=== PATIENT | female | born 1965 | race Caucasian/White ===

== ENCOUNTER 2019-04-13 12:41 | Emergency (ER) | payer MEDICARE ==
[~2019-04-13 12:41] MED LIST: ALBU0.63 NEB; BUPR100T11 PO; GUAI473L20 PO; HYDR-826 PO; IPRA3AMP30 NPPB; LIDO700A20 TD; LISI-424 PO; MAGN400O7 PO; METO25TA4 PO; OXYC-307 PO; PRED20TA PO; Sulfameth./Trimethoprim Ds PO; TRAM50TA2 PO
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
[2019-04-13] MEDS ORDERED: ALBUTEROL SULFATE 2.5 MG/3 ML NPPB ONE (13:30)
[2019-04-13] MEDS ORDERED: ALBUTEROL SULFATE 2.5 MG/3 ML ONE (13:43)
--- NOTE | 2019-04-13 14:14 | NUR ---
TASK NURSE USED US TO START PIV. 18G LFA
[2019-04-13 14:29] LABS: BASOPHILS # (AUTO) 0.06 x10^3/uL (0-0.1); BASOPHILS % (AUTO) 1 % (0-1); EOSINOPHILS # (AUTO) 0.33 x10^3/uL (0-0.4); EOSINOPHILS % (AUTO) 5 % (1-7); LYMPHOCYTES # (AUTO) 1.48 x10^3/uL (1-3.4); LYMPHOCYTES % (AUTO) 23 % (22-44); MD NO; MEAN CORPUSCULAR HEMOGLOBIN 31.7 pg (27.0-34.8); MEAN CORPUSCULAR HGB CONC 32.6 g/dL (32.4-35.8); MEAN CORPUSCULAR VOLUME 97.1 fL (80-100); MEAN PLATELET VOLUME 6.4 fL (7.4-10.4); MONOCYTES # (AUTO) 0.38 x10^3/uL (0.2-0.8); MONOCYTES % (AUTO) 6 % (2-9); NEUTROPHILS # (AUTO) 4.26 x10^3/uL (1.8-6.8); NEUTROPHILS % (AUTO) 65 % (42-75); PLATELET COUNT 504 x10^3/uL (130-400); RED BLOOD COUNT 3.93 x10^6/uL (3.82-5.3); RED CELL DISTRIBUTION WIDTH 15.8 % (9.6-15.2)
[2019-04-13 14:30] LABS: ALBUMIN 2.8 g/dL (3.4-5.0); ANION GAP 9 mmol/L (5-15); CALCIUM 8.7 mg/dL (8.5-10.1); CHLORIDE 112 mmol/L (98-107); CREATININE 0.88 mg/dL (0.55-1.02)
--- NOTE | 2019-04-13 14:44 | NUR ---
PT AT CT
[2019-04-13] MEDS ORDERED: OMNIPAQUE 350 MG/ML, 100ML BOTTLE ONE (14:53)
[2019-04-13 15:01] VITALS: BP 95/64
--- NOTE | 2019-04-13 15:02 | NUR ---
PT BACK FROM CT. PT CONNECTED TO ALL MONITORING. CHAPITO.
--- NOTE | 2019-04-13 15:14 | NUR ---
ALL RESULTS ARE BACK AT THIS TIME. CHART UP FOR RECHECK.
--- NOTE | 2019-04-13 15:34 | NUR ---
MD AT BEDSIDE TO UPDATE PT ON POC.
== END 2019-04-13 15:44 | disposition home or self-care (01) ==
LOC: ED 13:08
DX: R07.89 Other chest pain (principal); R05 Cough; R06.00 Dyspnea, unspecified; J44.9 Chronic obstructive pulmonary disease, unspecified; Z87.891 Personal history of nicotine dependence
CPT/HCPCS: 36415; 71275; 80048; 82040; 85025; 93005; 94640; 99284; Q9967

== ENCOUNTER 2019-05-14 12:02 | Day surgery (SDC) | payer MEDICARE ==
[~2019-05-14] VITALS: Ht 165.1 cm; Wt 88.6 kg
[~2019-05-14 12:02] MED LIST changes: +AMLO10TA8 PO; +AMOX1TAB12 PO; +ASPI-496 PO; +BUDE10.2 INH; +DEXA1TAB5 PO; +DOXY100T PO; +GUAI200T37 PO; +Guaifenesin/Cod200mg-20MG/10ML PO; +LEVO750T26 PO; +LISI-167 PO; +METO50TA82 PO; +OSEL75CA14 PO; +OXYcodone/APAP 7.5/325MG PO; +TIOT18CA INH
[2019-05-14 12:52] VITALS: BP 119/83
[2019-05-14 13:06] LABS: MICROSCOPIC NOT IND
[2019-05-14] MEDS ORDERED: METOPROLOL PO (13:06)
[2019-05-14 13:10] LABS: CULTURE INDICATED? NO
[2019-05-14] MEDS ORDERED: PROPOFOL 10 MG/ML, 20ML ONE (14:00)
[2019-05-14] MEDS ORDERED: ONDANSETRON 2MG/ML, 2ML ONE (14:00)
[2019-05-14] MEDS ORDERED: ROCURONIUM 10 MG/ML,10ML ONE (14:00)
[2019-05-14] MEDS ORDERED: DEXAMETHASONE 4 MG/ML, 1ML ONE (14:00)
[2019-05-14] MEDS ORDERED: MEPERIDINE/PF 25MG/ML,1ML IVPush PRN (14:30)
[2019-05-14] MEDS ORDERED: ONDANSETRON 2MG/ML, 2ML IV PRN (14:30)
[2019-05-14] MEDS ORDERED: PROMETHAZINE 25 MG/ML, 1ML IV PRN (14:30)
[2019-05-14] MEDS ORDERED: OXYcodone 5 MG/5 ML ORAL.SOL UDC PO PRN (14:30)
[2019-05-14] MEDS ORDERED: DIAZEPAM 5 MG/ML, 2ML IVPush PRN (14:30)
[2019-05-14] MEDS ORDERED: hydrALAzine 20 MG/ML, 1ML IV PRN (14:30)
[2019-05-14] MEDS ORDERED: MIDAZOLAM 1 MG/ML, 2ML IV PRN (14:30)
[2019-05-14] MEDS ORDERED: FENTANYL PF 100 MCG/2ML IV PRN (14:30)
[2019-05-14] MEDS ORDERED: LABETALOL 5MG/ML, 20ML IV PRN (14:30)
[2019-05-14] MEDS ORDERED: HYDROmorphone 1 MG/ML, 1ML INJ IVPush PRN (14:30)
[2019-05-14] MEDS ORDERED: ALBUTEROL/IPRATROPIUM 2.5MG/0.5MG, 3 ML ONE (15:01)
== END 2019-05-14 16:48 | disposition home or self-care (01) ==
LOC: OUT 12:02 → EDSTATUS 13:30 → OUT 16:48
PROVIDERS: ATTEND Internal Medicine
DX: R91.8 Other nonspecific abnormal finding of lung field (principal); R59.1 Generalized enlarged lymph nodes; J44.9 Chronic obstructive pulmonary disease, unspecified; I10 Essential (primary) hypertension; Z79.899 Other long term (current) drug therapy
CPT/HCPCS: 31652; 71045; 81003; 88172; 88173; 88177; 88305; 94640; J1100; J2405; J2704; 31629

== ENCOUNTER → 2019-05-22 | Outpatient (CLI) | payer MEDICARE ==
[~2019-05-22] MED LIST changes: +GADOTERATE 10 MMOL/20 ML SYR ONE; +METOPROLOL PO
== END | disposition home or self-care (01) ==
LOC: RAD 13:07
PROVIDERS: ATTEND Internal Medicine
DX: C77.1 Secondary and unspecified malignant neoplasm of intrathoracic lymph nodes (principal); I67.82 Cerebral ischemia; I63.81 Other cerebral infarction due to occlusion or stenosis of small artery; J34.1 Cyst and mucocele of nose and nasal sinus; J34.89 Other specified disorders of nose and nasal sinuses
CPT/HCPCS: 70553; 78815; A9552; A9575

== ENCOUNTER 2019-05-23 10:04 | Outpatient (CLI) | payer MEDICARE ==
[~2019-05-23 10:04] MED LIST changes: -GADOTERATE 10 MMOL/20 ML SYR ONE
== END 2019-05-23 23:59 | disposition home or self-care (01) ==
LOC: ROC 10:04
PROVIDERS: ATTEND Radiology Radiation Oncology
DX: C77.1 Secondary and unspecified malignant neoplasm of intrathoracic lymph nodes (principal)
CPT/HCPCS: G0463

== ENCOUNTER 2019-05-27 07:58 | Inpatient (IN) | payer MEDICARE ==
[~2019-05-27] VITALS: Ht 165.1 cm; Wt 93.9 kg
--- NOTE | 2019-05-27 08:15 | NUR ---
PT REFUSES WHEELCHAIR.
--- NOTE | 2019-05-27 09:09 | NUR ---
TO ROOM-PLACED ON OUTREACH TEAM MEMBER- 94, 105/74 REPORTS SUBSTERNAL CP SIMILIAR TO PAIN R/T KNOWN CANCEROUS MASS IN CHEST PATIENT UNSURE I SHE WOULD LIKE TO PURSUE RAD/CHEMO OR HOSPICE. REPORTS SHE IS GETTING LITTLE ASSISTANCE IN MAKING CAREY CHOICE FROM PCP/ONCOLOGIST
--- NOTE | 2019-05-27 09:50 | NUR ---
CXR AT BEDSIDE
[2019-05-27] MEDS ORDERED: MORPHINE SULFATE 4 MG/ML, 1ML ONE ×2 (10:12→13:02)
[2019-05-27] MEDS: MORPHINE SULFATE 4 MG/ML, 1ML IVPush PRN ×2 (10:29→13:17)
--- NOTE | 2019-05-27 10:29 | NUR ---
PIV PLACED FROM WHICH LABS WERE DRAWN-MEDICATED PER EMAR FOR 10/19 CHEST PAIN VSS UNCHANGED ON COIN PURSE FRAMER UPDATED ON ESTIMATED POC
[2019-05-27 10:44] LABS: BASOPHILS # (AUTO) 0.02 x10^3/uL (0-0.1); BASOPHILS % (AUTO) 0 % (0-1); EOSINOPHILS # (AUTO) 0.22 x10^3/uL (0-0.4); EOSINOPHILS % (AUTO) 2 % (1-7); LYMPHOCYTES # (AUTO) 1.22 x10^3/uL (1-3.4); LYMPHOCYTES % (AUTO) 12 % (22-44); MD NO; MEAN CORPUSCULAR HEMOGLOBIN 30.5 pg (27.0-34.8); MEAN CORPUSCULAR HGB CONC 32.8 g/dL (32.4-35.8); MEAN CORPUSCULAR VOLUME 92.9 fL (80-100); MEAN PLATELET VOLUME 6.9 fL (7.4-10.4); MONOCYTES # (AUTO) 0.69 x10^3/uL (0.2-0.8); MONOCYTES % (AUTO) 7 % (2-9); NEUTROPHILS # (AUTO) 7.73 x10^3/uL (1.8-6.8); NEUTROPHILS % (AUTO) 78 % (42-75); PLATELET COUNT 351 x10^3/uL (130-400); RED BLOOD COUNT 4.29 x10^6/uL (3.82-5.3); RED CELL DISTRIBUTION WIDTH 15.5 % (9.6-15.2)
[2019-05-27 10:54] LABS: ALBUMIN 3.2 g/dL (3.4-5.0); ANION GAP 5 mmol/L (5-15); CALCIUM 8.2 mg/dL (8.5-10.1); CHLORIDE 106 mmol/L (98-107); CREATININE 0.74 mg/dL (0.55-1.02)
[2019-05-27 10:59] LABS: TROPONIN I < 0.015 ng/mL (0.000-0.045)
[2019-05-27] MEDS ORDERED: HYDROcodone/APAP 5/325 TABLET PO STA (11:12)
[2019-05-27] MEDS ORDERED: HYDROcodone/APAP 5/325 TABLET ONE (11:31)
[2019-05-27] MEDS ORDERED: MORPHINE SULFATE 4 MG/ML, 1ML IVPush PRN (12:00)
--- NOTE | 2019-05-27 12:04 | NUR ---
WITH REASSESSMENT PATIENT REPORTS PAIN IMPROVED TO 4-6/10
[2019-05-27] MEDS ORDERED: ACETAMINOPHEN 325 MG TABLET PO PRN (12:30)
[2019-05-27] MEDS ORDERED: GABAPENTIN 300 MG CAPSULE PO PRN (12:30)
[2019-05-27] MEDS ORDERED: hydrALAzine 20 MG/ML, 1ML IVPush PRN (12:30)
[2019-05-27] MEDS ORDERED: LABETALOL 5MG/ML, 20ML IVPush PRN (12:30)
[2019-05-27] MEDS ORDERED: ONDANSETRON 2MG/ML, 2ML IVPush PRN (12:30)
[2019-05-27] MEDS ORDERED: LIDODERM 5% PATCH TD PRN (12:30)
[2019-05-27] MEDS ORDERED: PROMETHAZINE 25 MG/ML, 1ML IM PRN (12:30)
[2019-05-27] MEDS ORDERED: ASPIRIN 81 MG TABLET CHEW PO ONE (12:30)
[2019-05-27] MEDS ORDERED: ALBUTEROL/IPRATROPIUM 2.5MG/0.5MG, 3 ML ONE (12:38)
--- NOTE | 2019-05-27 12:42 | NUR ---
TO CT SCAN
[2019-05-27] MEDS ORDERED: OMNIPAQUE 350 MG/ML, 100ML BOTTLE ONE (12:49)
[2019-05-27] MEDS ORDERED: NICOTINE 14MG/24 HR PATCH.TD24 ONE (13:01)
[2019-05-27] MEDS: ALBUTEROL/IPRATROPIUM 2.5MG/0.5MG, 3 ML NPPB SCH ×3 (13:02→19:23)
[2019-05-27 13:09] LABS: INTERNATIONAL NORMALIZED RATIO 0.89 (0.93-1.1); PROTHROMBIN TIME 9.4 Seconds (9.6-11.5)
--- NOTE | 2019-05-27 13:10 | NUR ---
Medicated per emar for continued pain at 8/10 Rt at bedside-patient reports nebulizer "Helped a ton. I feel way better." Requested mucinex from pharmacy asa/hep deferred for time being as patient took 5 baby aspirins this AM
[2019-05-27] MEDS: HEPARIN 5,000 UNITS/ML, 1ML SQ SCH ×2 (13:15→20:03)
[2019-05-27] MEDS: NICOTINE 14MG/24 HR PATCH.TD24 TD SCH (13:16)
[2019-05-27] MEDS: SODIUM CHLORIDE 0.9% 1,000 ML IV SCH (13:17)
[2019-05-27 13:37] LABS: CHOL/HDL RATIO 3.4; LDL/HDL RATIO 2.1 (0.5-3.0)
[2019-05-27 14:26] VITALS: BP 93/64
[2019-05-27] MEDS: morphine SULFATE 10 MG/ML, 1ML IVPush PRN ×4 (14:34→21:34)
[2019-05-27] MEDS: GUAIFENESIN 200 MG TABLET PO SCH ×3 (14:34→20:04)
[2019-05-27 15:23] LABS: TROPONIN I < 0.015 ng/mL (0.000-0.045)
[2019-05-27 18:58] VITALS: BP 99/58
[2019-05-27] MEDS: HYDROcodone/APAP 5/325 TABLET PO PRN (20:03)
[2019-05-27] MEDS: ATORVASTATIN 40 MG TABLET PO SCH (20:04)
[2019-05-27 21:49] LABS: TROPONIN I < 0.015 ng/mL (0.000-0.045)
[2019-05-28] MEDS ORDERED: SODIUM CHLORIDE 0.9%, 500ML IVBOLUS ONE
[2019-05-28 00:51] VITALS: BP 109/76
[2019-05-28] MEDS: morphine SULFATE 10 MG/ML, 1ML IVPush PRN ×3 (01:00→11:50)
[2019-05-28] MEDS: ALBUTEROL/IPRATROPIUM 2.5MG/0.5MG, 3 ML NPPB SCH ×2 (01:15→06:35)
[2019-05-28] MEDS: GUAIFENESIN 200 MG TABLET PO SCH ×4 (04:56→22:09)
[2019-05-28] MEDS: HEPARIN 5,000 UNITS/ML, 1ML SQ SCH ×3 (04:57→22:09)
[2019-05-28 06:52] VITALS: BP 104/73
[2019-05-28] MEDS ORDERED: ALBUTEROL SULFATE 2.5 MG/3 ML NPPB PRN (07:00)
[2019-05-28] MEDS ORDERED: SODIUM CHLORIDE 0.9% 1,000ML IVBOLUS ONE (07:30)
[2019-05-28] MEDS ORDERED: PANTOPRAZOLE 40 MG IV IVPush SCH (07:30)
[2019-05-28] MEDS: HYDROcodone/APAP 5/325 TABLET PO PRN ×2 (07:49→22:53)
[2019-05-28 07:57] LABS: ALANINE AMINOTRANSFERASE 16 U/L (12-78); ALBUMIN 2.8 g/dL (3.4-5.0); ANION GAP 10 mmol/L (5-15); CALCIUM 8.2 mg/dL (8.5-10.1); CHLORIDE 107 mmol/L (98-107); CREATININE 0.55 mg/dL (0.55-1.02)
[2019-05-28 07:59] LABS: ALKALINE PHOSPHATASE 70 U/L (45-117); BILIRUBIN,TOTAL 0.7 mg/dL (0.2-1.0); TOTAL PROTEIN 6.5 g/dL (6.4-8.2)
[2019-05-28 08:56] LABS: BASOPHILS # (AUTO) 0.04 x10^3/uL (0-0.1); BASOPHILS % (AUTO) 1 % (0-1); EOSINOPHILS # (AUTO) 0.07 x10^3/uL (0-0.4); EOSINOPHILS % (AUTO) 1 % (1-7); LYMPHOCYTES # (AUTO) 1.18 x10^3/uL (1-3.4); LYMPHOCYTES % (AUTO) 14 % (22-44); MD NO; MEAN CORPUSCULAR HEMOGLOBIN 30.8 pg (27.0-34.8); MEAN CORPUSCULAR HGB CONC 33.2 g/dL (32.4-35.8); MEAN CORPUSCULAR VOLUME 92.6 fL (80-100); MEAN PLATELET VOLUME 6.5 fL (7.4-10.4); MONOCYTES # (AUTO) 0.69 x10^3/uL (0.2-0.8); MONOCYTES % (AUTO) 8 % (2-9); NEUTROPHILS # (AUTO) 6.36 x10^3/uL (1.8-6.8); NEUTROPHILS % (AUTO) 76 % (42-75); PLATELET COUNT 279 x10^3/uL (130-400); RED BLOOD COUNT 3.91 x10^6/uL (3.82-5.3); RED CELL DISTRIBUTION WIDTH 15.6 % (9.6-15.2)
[2019-05-28] MEDS: NICOTINE 14MG/24 HR PATCH.TD24 TD SCH (11:49)
[2019-05-28 12:54] VITALS: BP 96/66
[2019-05-28] MEDS ORDERED: HYDROmorphone 2 MG/ML, 1ML IVPush PRN (13:00)
[2019-05-28] MEDS: SODIUM CHLORIDE 0.9% 1,000 ML IV SCH (17:19)
[2019-05-28 21:57] VITALS: BP 111/72
[2019-05-28] MEDS: ATORVASTATIN 40 MG TABLET PO SCH (22:09)
[2019-05-29 03:32] VITALS: BP 106/75
[2019-05-29] MEDS: HYDROcodone/APAP 5/325 TABLET PO PRN ×3 (04:06→19:40)
[2019-05-29 06:00] LABS: ALBUMIN 2.6 g/dL (3.4-5.0); ANION GAP 7 mmol/L (5-15); CALCIUM 8.1 mg/dL (8.5-10.1); CHLORIDE 110 mmol/L (98-107); CREATININE 0.44 mg/dL (0.55-1.02)
[2019-05-29 06:05] LABS: BASOPHILS # (AUTO) 0.04 x10^3/uL (0-0.1); BASOPHILS % (AUTO) 1 % (0-1); EOSINOPHILS # (AUTO) 0.08 x10^3/uL (0-0.4); EOSINOPHILS % (AUTO) 2 % (1-7); LYMPHOCYTES # (AUTO) 1.01 x10^3/uL (1-3.4); LYMPHOCYTES % (AUTO) 20 % (22-44); MD NO; MEAN CORPUSCULAR HEMOGLOBIN 30.9 pg (27.0-34.8); MEAN CORPUSCULAR HGB CONC 33.6 g/dL (32.4-35.8); MEAN PLATELET VOLUME 7.2 fL (7.4-10.4); MONOCYTES # (AUTO) 0.52 x10^3/uL (0.2-0.8); MONOCYTES % (AUTO) 10 % (2-9); NEUTROPHILS # (AUTO) 3.55 x10^3/uL (1.8-6.8); NEUTROPHILS % (AUTO) 68 % (42-75); PLATELET COUNT 259 x10^3/uL (130-400); RED CELL DISTRIBUTION WIDTH 14.9 % (9.6-15.2)
[2019-05-29] MEDS: GUAIFENESIN 200 MG TABLET PO SCH ×4 (06:25→21:18)
[2019-05-29] MEDS: KETOROLAC 30 MG/1 ML IVPush PRN ×3 (06:25→22:05)
[2019-05-29] MEDS: PANTOPRAZOLE 40MG TABLET PO SCH (06:25)
[2019-05-29] MEDS: HEPARIN 5,000 UNITS/ML, 1ML SQ SCH ×3 (06:25→21:59)
[2019-05-29 08:34] VITALS: BP 102/77
[2019-05-29] MEDS: FLUTICASONE/VILANTEROL 200-25MCG/INH INH SCH ×2 (13:12→21:18)
[2019-05-29] MEDS: NICOTINE 14MG/24 HR PATCH.TD24 TD SCH (13:14)
[2019-05-29 13:24] VITALS: BP 115/72
[2019-05-29] MEDS: methylPREDNISolone SOD SUCC 125 MG/2 ML IVPush SCH ×2 (16:28→21:58)
[2019-05-29] MEDS: ATORVASTATIN 40 MG TABLET PO SCH (21:18)
[2019-05-29 22:11] VITALS: BP 124/82
[2019-05-30] MEDS ORDERED: ALBUTEROL/IPRATROPIUM 2.5MG/0.5MG, 3 ML NPPB PRN (01:00)
[2019-05-30 02:37] VITALS: BP 137/92
[2019-05-30] MEDS: methylPREDNISolone SOD SUCC 125 MG/2 ML IVPush SCH ×4 (04:01→21:32)
[2019-05-30] MEDS: KETOROLAC 30 MG/1 ML IVPush PRN ×3 (04:53→19:27)
[2019-05-30] MEDS: HYDROcodone/APAP 5/325 TABLET PO PRN ×3 (05:57→17:51)
[2019-05-30] MEDS: HEPARIN 5,000 UNITS/ML, 1ML SQ SCH ×3 (05:58→21:32)
[2019-05-30] MEDS: PANTOPRAZOLE 40MG TABLET PO SCH (05:58)
[2019-05-30] MEDS: GUAIFENESIN 200 MG TABLET PO SCH ×4 (05:58→19:59)
[2019-05-30] MEDS: ALBUTEROL/IPRATROPIUM 2.5MG/0.5MG, 3 ML NPPB SCH ×4 (07:00→18:38)
[2019-05-30] MEDS: FLUTICASONE/VILANTEROL 200-25MCG/INH INH SCH ×2 (08:20→20:10)
[2019-05-30 08:47] VITALS: BP 132/83
[2019-05-30 12:54] VITALS: BP 130/89
[2019-05-30] MEDS: NICOTINE 14MG/24 HR PATCH.TD24 TD SCH (12:56)
[2019-05-30 19:29] VITALS: BP 133/82
[2019-05-30] MEDS: ATORVASTATIN 40 MG TABLET PO SCH (20:07)
[2019-05-30] MEDS: METOPROLOL TARTRATE 50 MG TAB PO SCH (20:07)
[2019-05-31 01:13] VITALS: BP 132/94
[2019-05-31] MEDS: methylPREDNISolone SOD SUCC 125 MG/2 ML IVPush SCH ×3 (03:20→15:32)
[2019-05-31] MEDS: HYDROcodone/APAP 5/325 TABLET PO PRN ×2 (03:20→13:35)
[2019-05-31 04:37] LABS: BASOPHILS # (AUTO) 0.02 x10^3/uL (0-0.1); BASOPHILS % (AUTO) 0 % (0-1); EOSINOPHILS # (AUTO) 0.03 x10^3/uL (0-0.4); EOSINOPHILS % (AUTO) 0 % (1-7); LYMPHOCYTES # (AUTO) 0.43 x10^3/uL (1-3.4); LYMPHOCYTES % (AUTO) 4 % (22-44); MD NO; MEAN CORPUSCULAR HEMOGLOBIN 30.7 pg (27.0-34.8); MEAN CORPUSCULAR HGB CONC 33.3 g/dL (32.4-35.8); MEAN CORPUSCULAR VOLUME 92.3 fL (80-100); MONOCYTES # (AUTO) 0.24 x10^3/uL (0.2-0.8); MONOCYTES % (AUTO) 2 % (2-9); NEUTROPHILS # (AUTO) 11.56 x10^3/uL (1.8-6.8); NEUTROPHILS % (AUTO) 94 % (42-75); PLATELET COUNT 345 x10^3/uL (130-400); RED BLOOD COUNT 3.82 x10^6/uL (3.82-5.3); RED CELL DISTRIBUTION WIDTH 14.9 % (9.6-15.2)
[2019-05-31 04:47] LABS: ANION GAP 6 mmol/L (5-15); CALCIUM 8.9 mg/dL (8.5-10.1); CHLORIDE 113 mmol/L (98-107)
[2019-05-31 04:48] LABS: CREATININE 0.56 mg/dL (0.55-1.02)
[2019-05-31 05:20] VITALS: BP 129/88
[2019-05-31] MEDS: HEPARIN 5,000 UNITS/ML, 1ML SQ SCH ×2 (05:21→15:32)
[2019-05-31] MEDS: METOPROLOL TARTRATE 50 MG TAB PO SCH (05:21)
[2019-05-31] MEDS: GUAIFENESIN 200 MG TABLET PO SCH ×3 (05:21→15:32)
[2019-05-31] MEDS: PANTOPRAZOLE 40MG TABLET PO SCH (05:21)
[2019-05-31 07:24] VITALS: BP 131/91
[2019-05-31] MEDS: ALBUTEROL/IPRATROPIUM 2.5MG/0.5MG, 3 ML NPPB SCH ×3 (07:40→14:20)
[2019-05-31] MEDS: KETOROLAC 30 MG/1 ML IVPush PRN (07:58)
[2019-05-31] MEDS: FLUTICASONE/VILANTEROL 200-25MCG/INH INH SCH (08:10)
[2019-05-31] MEDS ORDERED: REGADENOSON 0.4 MG/5 ML SYRINGE ONE (09:15)
[2019-05-31] MEDS: NICOTINE 14MG/24 HR PATCH.TD24 TD SCH (12:22)
[2019-05-31] MEDS ORDERED: DEXA1TAB5 PO (13:54)
[2019-05-31 14:32] VITALS: BP 127/90
[2019-05-31] MEDS ORDERED: IPRA3AMP30 NPPB (14:46)
== END 2019-05-31 17:41 | disposition home or self-care (01) | DRG 191 ==
LOC: ED 12:03 → EDIP 12:14 → 4WST 14:02 → ICU 05-28 20:27 → 4WST 05-29 20:16
PROVIDERS: ADMIT Internal Medicine; ATTEND Hospitalist
DX: J44.1 Chronic obstructive pulmonary disease with (acute) exacerbation (principal); J98.11 Atelectasis; E87.1 Hypo-osmolality and hyponatremia; C34.11 Malignant neoplasm of upper lobe, right bronchus or lung; R07.9 Chest pain, unspecified; K21.9 Gastro-esophageal reflux disease without esophagitis; I10 Essential (primary) hypertension; Z87.891 Personal history of nicotine dependence; Z98.890 Other specified postprocedural states
CPT/HCPCS: 36415; 71045; 71275; 78452; 80048; 80053; 80061; 80069; 82040; 83735; 83880; 84145; 84484; 85025; 85610; 87070; 87081; 87205; 87486; 87581; 87633; 87798; 93005; 93017; 93308; 93321; 93325; 94640; 96374; 96376; G0378; J1170; J1644; J1885; J2405; J2785; Q9967; A9502; C9113; C9898; J2270; J2930; J7030; J7040; Q0177

== ENCOUNTER 2019-06-21 17:00 | Emergency (ER) | payer MEDICARE ==
[~2019-06-21] VITALS: Ht 165.1 cm; Wt 98.0 kg
[2019-06-21] MEDS ORDERED: SODIUM CHLORIDE FLUSH 10ML SYR IVF ONE (17:30)
[2019-06-21] MEDS ORDERED: methylPREDNISolone SOD SUCC 125 MG/2 ML ONE (17:30)
[2019-06-21] MEDS ORDERED: methylPREDNISolone SOD SUCC 125 MG/2 ML IV ONE (17:30)
[2019-06-21 18:21] LABS: BASOPHILS # (AUTO) 0.02 x10^3/uL (0-0.1); BASOPHILS % (AUTO) 0 % (0-1); EOSINOPHILS # (AUTO) 0.29 x10^3/uL (0-0.4); EOSINOPHILS % (AUTO) 4 % (1-7); LYMPHOCYTES # (AUTO) 0.75 x10^3/uL (1-3.4); LYMPHOCYTES % (AUTO) 10 % (22-44); MD NO; MEAN CORPUSCULAR HEMOGLOBIN 30.5 pg (27.0-34.8); MEAN CORPUSCULAR HGB CONC 33.1 g/dL (32.4-35.8); MEAN PLATELET VOLUME 7.3 fL (7.4-10.4); MONOCYTES # (AUTO) 0.72 x10^3/uL (0.2-0.8); MONOCYTES % (AUTO) 9 % (2-9); NEUTROPHILS # (AUTO) 6.04 x10^3/uL (1.8-6.8); NEUTROPHILS % (AUTO) 77 % (42-75); PLATELET COUNT 250 x10^3/uL (130-400); RED BLOOD COUNT 4.12 x10^6/uL (3.82-5.3); RED CELL DISTRIBUTION WIDTH 16.3 % (9.6-15.2)
[2019-06-21 18:24] LABS: ALBUMIN 2.8 g/dL (3.4-5.0); ANION GAP 6 mmol/L (5-15); CALCIUM 8.2 mg/dL (8.5-10.1); CHLORIDE 109 mmol/L (98-107); CREATININE 0.73 mg/dL (0.55-1.02)
[2019-06-21 18:28] LABS: TROPONIN I < 0.015 ng/mL (0.000-0.045)
[2019-06-21 18:34] VITALS: BP 119/76
== END 2019-06-21 19:12 | disposition home or self-care (01) ==
LOC: ED 17:15
DX: J44.1 Chronic obstructive pulmonary disease with (acute) exacerbation (principal); I11.9 Hypertensive heart disease without heart failure; R94.31 Abnormal electrocardiogram [ECG] [EKG]; R00.0 Tachycardia, unspecified; I25.2 Old myocardial infarction; Z85.118 Personal history of other malignant neoplasm of bronchus and lung; Z87.891 Personal history of nicotine dependence
CPT/HCPCS: 36415; 71045; 80048; 82040; 83880; 84484; 85025; 93005; 96374; 99285; J2930

== ENCOUNTER 2019-07-01 07:59 | Outpatient (CLI) | payer MEDICARE | END 2019-07-01 23:59 | disposition home or self-care (01) | LOC: CFH 07:59 | PROVIDERS: ATTEND Radiology Radiation Oncology | DX: C34.11 Malignant neoplasm of upper lobe, right bronchus or lung (principal); R06.02 Shortness of breath; R05 Cough; I10 Essential (primary) hypertension; J98.4 Other disorders of lung | CPT/HCPCS: 71046 ==

== ENCOUNTER 2019-08-02 10:39 | Inpatient (IN) | payer MEDICARE ==
[~2019-08-02] VITALS: Ht 165.1 cm; Wt 95.4 kg
[2019-08-02] MEDS ORDERED: ADENOSINE 6 MG/2 ML ONE (10:54)
[2019-08-02] MEDS ORDERED: DILTIAZEM 5 MG/ML, 5ML ONE (10:54)
[2019-08-02] MEDS ORDERED: SODIUM CHLORIDE FLUSH 10ML SYR IVF ONE (11:00)
[2019-08-02] MEDS ORDERED: ASPIRIN 81 MG TABLET CHEW PO ONE (11:00)
[2019-08-02] MEDS ORDERED: ADENOSINE 6 MG/2 ML IVPush ONE ×2 (11:00)
[2019-08-02] MEDS ORDERED: PLEASE ENTER HEIGHT AND WEIGHT MC SCH (11:00)
[2019-08-02] MEDS ORDERED: DILTIAZEM 5 MG/ML, 5ML IVPush ONE (11:00)
[2019-08-02] MEDS ORDERED: LORazepam 2 MG/ML, 1ML IVPush ONE (11:00)
--- NOTE | 2019-08-02 11:13 | NUR ---
BIB [facility] FOR SVT - HR 182, PER EMS BP 70'S/40'S, UNABLE TO ESTABLISH IV IN ROUTE. MD AT BEDSIDE, IV ESTABLISHED IN NIC CHEST AND PT PLACED ON MONITOR AND DEFIB PADS, HR 172, BP 137/103, ADENOSINE GIVEN 6MG @1041 WITH HR TO 169, ADDITIONAL 12MG @1242 AND 12MG GIVEN @1244 WITH HR 148, BP 84/62. EKG OBTAINED. 1L IVF INFUSING.
--- NOTE | 2019-08-02 11:18 | NUR ---
LAB AND XRAY AT BEDSIDE
[2019-08-02] MEDS ORDERED: ASPIRIN 81 MG TABLET CHEW ONE (11:23)
[2019-08-02] MEDS ORDERED: SODIUM CHLORIDE 0.9% 1,000ML IVBOLUS ONE ×2 (11:30→12:30)
[2019-08-02] MEDS ORDERED: LORazepam 2 MG/ML, 1ML ONE (11:34)
[2019-08-02 11:35] LABS: BASOPHILS # (AUTO) 0.03 x10^3/uL (0-0.1); BASOPHILS % (AUTO) 0 % (0-1); EOSINOPHILS # (AUTO) 0.14 x10^3/uL (0-0.4); EOSINOPHILS % (AUTO) 1 % (1-7); LYMPHOCYTES # (AUTO) 0.23 x10^3/uL (1-3.4); LYMPHOCYTES % (AUTO) 2 % (22-44); MD NO; MEAN CORPUSCULAR HEMOGLOBIN 31.4 pg (27.0-34.8); MEAN CORPUSCULAR HGB CONC 33.2 g/dL (32.4-35.8); MEAN CORPUSCULAR VOLUME 94.6 fL (80-100); MEAN PLATELET VOLUME 6.4 fL (7.4-10.4); MONOCYTES % (AUTO) 5 % (2-9); NEUTROPHILS # (AUTO) 14.32 x10^3/uL (1.8-6.8); NEUTROPHILS % (AUTO) 93 % (42-75); PLATELET COUNT 262 x10^3/uL (130-400); RED BLOOD COUNT 4.68 x10^6/uL (3.82-5.3); RED CELL DISTRIBUTION WIDTH 19.1 % (9.6-15.2)
[2019-08-02 11:44] LABS: ANION GAP 9 mmol/L (5-15); CALCIUM 8.1 mg/dL (8.5-10.1); CHLORIDE 107 mmol/L (98-107)
[2019-08-02 11:47] LABS: ALANINE AMINOTRANSFERASE 19 U/L (12-78); BILIRUBIN,TOTAL 1.4 mg/dL (0.2-1.0); CREATININE 1.15 mg/dL (0.55-1.02); TOTAL PROTEIN 6.4 g/dL (6.4-8.2); TROPONIN I < 0.015 ng/mL (0.000-0.045)
[2019-08-02 11:52] LABS: ALKALINE PHOSPHATASE 72 U/L (45-117)
[2019-08-02] MEDS ORDERED: MAGNESIUM SULFATE PMX 2GM/50ML 50 ML ONE (11:54)
[2019-08-02] MEDS ORDERED: ACETAMINOPHEN 500 MG TABLET ONE (11:54)
[2019-08-02] MEDS ORDERED: MAGNESIUM SULFATE PMX 2GM/50ML 50 ML IV ONE ×2 (12:00→15:00)
[2019-08-02] MEDS ORDERED: ACETAMINOPHEN 500 MG TABLET PO ONE (12:00)
[2019-08-02 12:20] LABS: D-DIMER 1.8 ug/mlFEU (0.00-0.52); D-DIMER (DIC) 1.8 ug/mlFEU (0.00-0.52); PROTIME 10.5 Seconds (9.6-11.5)
--- NOTE | 2019-08-02 12:20 | NUR ---
PT TO CT
[2019-08-02] MEDS ORDERED: OMNIPAQUE 350 MG/ML, 75ML BOTTLE ONE (12:51)
--- NOTE | 2019-08-02 12:59 | NUR ---
PT RETURNED FROM CT, ADDITIONAL IVF BOLUS AND MG STARTED
[2019-08-02] MEDS ORDERED: AZITHROMYCIN 500 MG in SODIUM CHLORIDE 0.9% 250 ML IV ONE (14:00)
[2019-08-02] MEDS ORDERED: CEFTRIAXONE PMX 1GM/50ML 50 ML IV ONE (14:00)
--- NOTE | 2019-08-02 14:02 | NUR ---
REPORT TO SAHIL WOMACK. PT MOVED TO ROOM 37
--- NOTE | 2019-08-02 14:24 | NUR ---
Pt moved to room 37, no complaints at thuis time. Resting, watching TV. ABX infusing.
[2019-08-02] MEDS ORDERED: ACETAMINOPHEN 325 MG TABLET PO PRN (15:00)
[2019-08-02] MEDS ORDERED: DILTIAZEM 5 MG/ML, 5ML IVPush PRN (15:00)
[2019-08-02] MEDS ORDERED: TRAZODONE 50MG TABLET PO PRN (15:00)
[2019-08-02] MEDS ORDERED: PHARMACY MAY ADJ FOR RENAL FX MC PRN (15:00)
[2019-08-02] MEDS ORDERED: ALBUTEROL INH PRN (15:30)
--- NOTE | 2019-08-02 15:50 | NUR ---
Pt report given to Lisset WOMACK. Pt assisted to the restroom prior to transfer.
[2019-08-02 16:50] VITALS: BP 124/70
[2019-08-02] MEDS: ENOXAPARIN 40 MG/0.4 ML SQ SCH (17:10)
[2019-08-02] MEDS: SODIUM CHLORIDE 0.9% 1,000 ML IV SCH (17:10)
[2019-08-02] MEDS: BENZONATATE 100 MG CAPSULE PO SCH ×2 (17:11→20:30)
[2019-08-02] MEDS: methylPREDNISolone SOD SUCC 40 MG/ML IV SCH (17:11)
[2019-08-02] MEDS: NICOTINE 14MG/24 HR PATCH.TD24 TD SCH (17:15)
[2019-08-02] MEDS: FLUCONAZOLE 200 MG/100 ML 100 ML IV SCH (17:57)
[2019-08-02 18:51] VITALS: BP 133/81
[2019-08-02] MEDS: ASCORBIC ACID 500 MG TABLET PO SCH (20:30)
[2019-08-02] MEDS: METOPROLOL TARTRATE 25 MG TAB PO SCH (20:30)
[2019-08-02] MEDS: CEFTRIAXONE PMX 1GM/50ML 50 ML IV SCH (20:30)
[2019-08-02 22:36] LABS: MICROSCOPIC NOT IND
[2019-08-03] MEDS: GUAIFENESIN/DM 200-20MG, 10ML UDC PO PRN (01:07)
[2019-08-03 01:09] VITALS: BP 154/97
[2019-08-03] MEDS: METOPROLOL TARTRATE 25 MG TAB PO SCH ×4 (03:17→21:31)
[2019-08-03] MEDS: SODIUM CHLORIDE 0.9% 1,000 ML IV SCH ×2 (04:45→17:36)
[2019-08-03] MEDS: methylPREDNISolone SOD SUCC 40 MG/ML IV SCH ×2 (04:45→17:30)
[2019-08-03 05:00] LABS: BASOPHILS # (AUTO) 0.02 x10^3/uL (0-0.1); BASOPHILS % (AUTO) 0 % (0-1); EOSINOPHILS % (AUTO) 0 % (1-7); LYMPHOCYTES # (AUTO) 0.24 x10^3/uL (1-3.4); LYMPHOCYTES % (AUTO) 4 % (22-44); MD NO; MEAN CORPUSCULAR HEMOGLOBIN 31.3 pg (27.0-34.8); MEAN CORPUSCULAR HGB CONC 33.3 g/dL (32.4-35.8); MEAN PLATELET VOLUME 6.6 fL (7.4-10.4); MONOCYTES # (AUTO) 0.14 x10^3/uL (0.2-0.8); MONOCYTES % (AUTO) 2 % (2-9); NEUTROPHILS # (AUTO) 6.44 x10^3/uL (1.8-6.8); NEUTROPHILS % (AUTO) 94 % (42-75); PLATELET COUNT 240 x10^3/uL (130-400); RED BLOOD COUNT 4.61 x10^6/uL (3.82-5.3)
[2019-08-03 05:02] LABS: ANION GAP 7 mmol/L (5-15); CALCIUM 8.1 mg/dL (8.5-10.1); CHLORIDE 108 mmol/L (98-107); CREATININE 0.63 mg/dL (0.55-1.02)
[2019-08-03] MEDS ORDERED: POTASSIUM PHOSPHATE 22 MEQ in SODIUM CHLORIDE 0.9% 500 ML IV ONE (06:30)
[2019-08-03] MEDS ORDERED: PANTOPRAZOLE 40 MG IV IVPush SCH (07:30)
[2019-08-03 08:00] VITALS: BP 138/87
[2019-08-03] MEDS ORDERED: CEFTRIAXONE PMX 1GM/50ML 50 ML IV SCH (09:00)
[2019-08-03] MEDS: morphine SULFATE 10 MG/ML, 1ML IVPush PRN ×2 (09:05→13:50)
[2019-08-03] MEDS: BENZONATATE 100 MG CAPSULE PO SCH ×3 (09:06→21:30)
[2019-08-03] MEDS: ZINC SULFATE 220 MG CAPSULE PO SCH (09:09)
[2019-08-03] MEDS: ASCORBIC ACID 500 MG TABLET PO SCH ×2 (09:09→21:30)
[2019-08-03] MEDS: SENNA/DOCUSATE TABLET PO SCH (09:10)
[2019-08-03] MEDS: maalox/diphenh/lido/sucralfate 5 ML PO SCH (10:26)
[2019-08-03] MEDS: LORazepam 1MG TABLET PO PRN (12:17)
[2019-08-03 12:19] VITALS: BP 141/102
[2019-08-03] MEDS: AZITHROMYCIN 500 MG in SODIUM CHLORIDE 0.9% 250 ML IV SCH (15:11)
[2019-08-03] MEDS: FLUCONAZOLE 200 MG/100 ML 100 ML IV SCH (17:29)
[2019-08-03] MEDS: NICOTINE 14MG/24 HR PATCH.TD24 TD SCH (17:29)
[2019-08-03] MEDS: ENOXAPARIN 40 MG/0.4 ML SQ SCH (17:29)
[2019-08-03 18:22] VITALS: BP 149/104
[2019-08-03] MEDS: morphine SULFATE ORAL.CONC 20 MG/ML PO PRN (21:30)
[2019-08-03] MEDS: CEFTRIAXONE PMX 1GM/50ML 50 ML IV SCH (21:32)
[2019-08-03] MEDS: LORazepam 2 MG/ML, 1ML IVPush PRN (22:54)
[2019-08-04 02:00] VITALS: BP 146/99
[2019-08-04] MEDS: methylPREDNISolone SOD SUCC 40 MG/ML IV SCH ×2 (05:02→17:49)
[2019-08-04] MEDS: METOPROLOL TARTRATE 25 MG TAB PO SCH (05:02)
[2019-08-04] MEDS: morphine SULFATE 10 MG/ML, 1ML IVPush PRN ×4 (05:03→19:55)
[2019-08-04 05:04] VITALS: BP 145/90
[2019-08-04] MEDS: PANTOPRAZOLE 40MG TABLET PO SCH (07:32)
[2019-08-04 07:35] VITALS: BP 137/89
[2019-08-04] MEDS: ASCORBIC ACID 500 MG TABLET PO SCH ×2 (08:14→19:54)
[2019-08-04] MEDS: BENZONATATE 100 MG CAPSULE PO SCH ×3 (08:15→19:54)
[2019-08-04] MEDS: LORazepam 1MG TABLET PO PRN ×2 (08:15→14:04)
[2019-08-04] MEDS: ZINC SULFATE 220 MG CAPSULE PO SCH (08:15)
[2019-08-04] MEDS: SENNA/DOCUSATE TABLET PO SCH (08:15)
[2019-08-04] MEDS: METOPROLOL TARTRATE 50 MG TAB PO SCH ×3 (08:15→19:54)
[2019-08-04] MEDS: maalox/diphenh/lido/sucralfate 5 ML PO SCH (08:31)
[2019-08-04] MEDS ORDERED: FENTANYL REMOVE PATCH NOTE XX SCH (09:30)
[2019-08-04] MEDS: FENTANYL 50 MCG PATCH TD SCH (11:15)
[2019-08-04] MEDS: morphine SULFATE ORAL.CONC 20 MG/ML PO PRN ×2 (11:48→17:49)
[2019-08-04] MEDS: ACETAMINOPHEN 650 MG/20.3 ML UDC PO PRN ×2 (11:48→17:49)
[2019-08-04 12:10] VITALS: BP 128/98
[2019-08-04] MEDS: AZITHROMYCIN 500 MG in SODIUM CHLORIDE 0.9% 250 ML IV SCH (14:04)
[2019-08-04] MEDS: GUAIFENESIN/DM 200-20MG, 10ML UDC PO PRN (14:04)
[2019-08-04] MEDS: FLUCONAZOLE 200 MG/100 ML 100 ML IV SCH (15:29)
[2019-08-04] MEDS: NICOTINE 14MG/24 HR PATCH.TD24 TD SCH (15:30)
[2019-08-04] MEDS: ENOXAPARIN 40 MG/0.4 ML SQ SCH (15:30)
[2019-08-04 19:52] VITALS: BP 171/98
[2019-08-04] MEDS: CEFTRIAXONE PMX 1GM/50ML 50 ML IV SCH (19:54)
[2019-08-04] MEDS: LORazepam 2 MG/ML, 1ML IVPush PRN (22:04)
[2019-08-04 23:04] LABS: CLOSTRIDIUM DIFFICILE ANTIGEN NEGATIVE; CLOSTRIDIUM DIFFICILE TOXIN NEGATIVE (Negative)
[2019-08-05 00:17] VITALS: BP 152/111
[2019-08-05] MEDS: morphine SULFATE 10 MG/ML, 1ML IVPush PRN ×6 (01:00→22:20)
[2019-08-05 03:35] VITALS: BP 168/100
[2019-08-05] MEDS: LORazepam 1MG TABLET PO PRN ×4 (03:35→21:31)
[2019-08-05] MEDS: METOPROLOL TARTRATE 50 MG TAB PO SCH ×4 (03:35→21:31)
[2019-08-05] MEDS: methylPREDNISolone SOD SUCC 40 MG/ML IV SCH ×2 (04:01→14:33)
[2019-08-05 04:11] LABS: ANION GAP 3 mmol/L (5-15); C-REACTIVE PROTEIN, QUANT 0.62 mg/dL (0.02-0.49); CALCIUM 7.9 mg/dL (8.5-10.1); CHLORIDE 110 mmol/L (98-107); CREATININE 0.64 mg/dL (0.55-1.02)
[2019-08-05] MEDS: PANTOPRAZOLE 40MG TABLET PO SCH (05:27)
[2019-08-05] MEDS: morphine SULFATE ORAL.CONC 20 MG/ML PO PRN ×4 (05:28→19:50)
[2019-08-05] MEDS ORDERED: MAGNESIUM SULFATE PMX 2GM/50ML 50 ML IV ONE (06:30)
[2019-08-05 07:24] VITALS: BP 160/106
[2019-08-05] MEDS: maalox/diphenh/lido/sucralfate 5 ML PO SCH ×2 (08:00→20:15)
[2019-08-05] MEDS: BENZONATATE 100 MG CAPSULE PO SCH ×3 (08:04→21:31)
[2019-08-05] MEDS: ASCORBIC ACID 500 MG TABLET PO SCH ×2 (08:04→21:32)
[2019-08-05] MEDS: ZINC SULFATE 220 MG CAPSULE PO SCH (08:04)
[2019-08-05] MEDS: SENNA/DOCUSATE TABLET PO SCH (08:07)
[2019-08-05] MEDS: LISINOPRIL 10 MG TABLET PO SCH ×2 (08:07→21:31)
[2019-08-05] MEDS: ACETAMINOPHEN 650 MG/20.3 ML UDC PO PRN (12:02)
[2019-08-05 12:29] VITALS: BP 160/104
[2019-08-05] MEDS: ENOXAPARIN 40 MG/0.4 ML SQ SCH (14:32)
[2019-08-05] MEDS: AZITHROMYCIN 500 MG in SODIUM CHLORIDE 0.9% 250 ML IV SCH (14:32)
[2019-08-05] MEDS: NICOTINE 14MG/24 HR PATCH.TD24 TD SCH ×2 (14:33→14:37)
[2019-08-05] MEDS: FLUCONAZOLE 200 MG/100 ML 100 ML IV SCH (15:51)
[2019-08-05] MEDS ORDERED: DIPHENOXYLATE/ATROPINE TABLET PO PRN (16:30)
[2019-08-05 18:44] VITALS: BP 156/98
[2019-08-05] MEDS: ONDANSETRON 2MG/ML, 2ML IVPush PRN (19:10)
[2019-08-05] MEDS: CEFTRIAXONE PMX 1GM/50ML 50 ML IV SCH (20:11)
[2019-08-05] MEDS: GUAIFENESIN/DM 200-20MG, 10ML UDC PO PRN (22:20)
[2019-08-06] MEDS: morphine SULFATE 10 MG/ML, 1ML IVPush PRN ×5 (02:01→22:01)
[2019-08-06 02:16] VITALS: BP 130/89
[2019-08-06] MEDS: METOPROLOL TARTRATE 50 MG TAB PO SCH ×4 (03:13→20:35)
[2019-08-06] MEDS: PANTOPRAZOLE 40MG TABLET PO SCH (05:09)
[2019-08-06] MEDS: methylPREDNISolone SOD SUCC 40 MG/ML IV SCH ×2 (05:09→18:11)
[2019-08-06] MEDS: LORazepam 1MG TABLET PO PRN ×3 (05:19→19:44)
[2019-08-06] MEDS: morphine SULFATE ORAL.CONC 20 MG/ML PO PRN ×3 (05:32→19:45)
[2019-08-06 07:50] VITALS: BP 153/104
[2019-08-06] MEDS: maalox/diphenh/lido/sucralfate 5 ML PO SCH ×2 (07:50→18:12)
[2019-08-06] MEDS: ZINC SULFATE 220 MG CAPSULE PO SCH (08:01)
[2019-08-06] MEDS: SENNA/DOCUSATE TABLET PO SCH (08:01)
[2019-08-06] MEDS: LISINOPRIL 10 MG TABLET PO SCH ×2 (08:01→20:35)
[2019-08-06] MEDS: ASCORBIC ACID 500 MG TABLET PO SCH ×2 (08:01→20:35)
[2019-08-06] MEDS: BENZONATATE 100 MG CAPSULE PO SCH ×3 (08:01→20:35)
[2019-08-06] MEDS: ALBUTEROL SULFATE 2.5 MG/3 ML NPPB PRN (13:50)
[2019-08-06] MEDS: AZITHROMYCIN 500 MG in SODIUM CHLORIDE 0.9% 250 ML IV SCH (14:01)
[2019-08-06 14:17] VITALS: BP 153/96
[2019-08-06] MEDS: ACETAMINOPHEN 650 MG/20.3 ML UDC PO PRN (14:36)
[2019-08-06] MEDS: ENOXAPARIN 40 MG/0.4 ML SQ SCH (15:41)
[2019-08-06] MEDS: FLUCONAZOLE 200 MG TABLET PO SCH (15:41)
[2019-08-06] MEDS: NICOTINE 14MG/24 HR PATCH.TD24 TD SCH (15:42)
[2019-08-06 19:46] VITALS: BP 155/92
[2019-08-06] MEDS: CEFTRIAXONE PMX 1GM/50ML 50 ML IV SCH (20:35)
[2019-08-06] MEDS: ONDANSETRON 2MG/ML, 2ML IVPush PRN (21:25)
[2019-08-07 00:15] VITALS: BP 100/67
[2019-08-07] MEDS: METOPROLOL TARTRATE 50 MG TAB PO SCH ×4 (02:02→21:37)
[2019-08-07] MEDS: morphine SULFATE 10 MG/ML, 1ML IVPush PRN ×5 (02:10→23:15)
[2019-08-07] MEDS: methylPREDNISolone SOD SUCC 40 MG/ML IV SCH (04:08)
[2019-08-07] MEDS: LORazepam 1MG TABLET PO PRN ×3 (04:08→20:47)
[2019-08-07] MEDS: PANTOPRAZOLE 40MG TABLET PO SCH (05:29)
[2019-08-07] MEDS: morphine SULFATE ORAL.CONC 20 MG/ML PO PRN ×2 (05:29→21:37)
[2019-08-07] MEDS: ACETAMINOPHEN 650 MG/20.3 ML UDC PO PRN (05:44)
[2019-08-07 07:08] VITALS: BP 162/89
[2019-08-07] MEDS: BENZONATATE 100 MG CAPSULE PO SCH ×3 (07:19→21:36)
[2019-08-07] MEDS: LISINOPRIL 10 MG TABLET PO SCH ×2 (07:19→21:36)
[2019-08-07] MEDS: ZINC SULFATE 220 MG CAPSULE PO SCH (07:19)
[2019-08-07] MEDS: ASCORBIC ACID 500 MG TABLET PO SCH ×2 (07:19→21:00)
[2019-08-07] MEDS: SENNA/DOCUSATE TABLET PO SCH (07:20)
[2019-08-07 11:28] LABS: MD YES; MEAN CORPUSCULAR HEMOGLOBIN 31.8 pg (27.0-34.8); MEAN CORPUSCULAR HGB CONC 33.3 g/dL (32.4-35.8); MEAN CORPUSCULAR VOLUME 95.5 fL (80-100); MEAN PLATELET VOLUME 6.9 fL (7.4-10.4); PLATELET COUNT 236 x10^3/uL (130-400); RED BLOOD COUNT 4.45 x10^6/uL (3.82-5.3); RED CELL DISTRIBUTION WIDTH 18.5 % (9.6-15.2)
[2019-08-07 11:33] LABS: BASOPHILS # (AUTO) 0.03 x10^3/uL (0-0.1); BASOPHILS % (AUTO) 0 % (0-1); EOSINOPHILS % (AUTO) 0 % (1-7); LYMPHOCYTES % (AUTO) 3 % (22-44); MONOCYTES # (AUTO) 0.34 x10^3/uL (0.2-0.8); MONOCYTES % (AUTO) 3 % (2-9); NEUTROPHILS # (AUTO) 9.49 x10^3/uL (1.8-6.8); NEUTROPHILS % (AUTO) 93 % (42-75)
[2019-08-07 12:10] LABS: MICROSCOPIC NOT IND
[2019-08-07 12:27] LABS: <PLATELET ESTIMATE> ADEQUATE; <PLT MORPHOLOGY> NORMAL PLT MORPH; ANISOCYTOSIS 1+; LYMPH#(MANUAL) 0.51 x10^3/uL (1-3.4); LYMPHS% (MANUAL) 5 % (22-44); MONOS% (MANUAL) 2 % (2-9); SEG#(MANUAL) 9.49 x10^3/uL (1.8-6.8); SEGS% (MANUAL) 93 % (42-75)
[2019-08-07 12:58] VITALS: BP 170/110
[2019-08-07] MEDS: FENTANYL 50 MCG PATCH TD SCH (12:59)
[2019-08-07] MEDS: maalox/diphenh/lido/sucralfate 5 ML PO SCH (13:13)
[2019-08-07] MEDS: AZITHROMYCIN 500 MG in SODIUM CHLORIDE 0.9% 250 ML IV SCH ×2 (13:19→19:38)
[2019-08-07] MEDS: FLUCONAZOLE 200 MG TABLET PO SCH (15:44)
[2019-08-07] MEDS: ENOXAPARIN 40 MG/0.4 ML SQ SCH (15:45)
[2019-08-07] MEDS: NICOTINE 14MG/24 HR PATCH.TD24 TD SCH (15:45)
[2019-08-07 19:39] VITALS: BP 145/89
[2019-08-07] MEDS: ALBUTEROL SULFATE 2.5 MG/3 ML NPPB PRN (20:20)
[2019-08-07] MEDS: CEFTRIAXONE PMX 1GM/50ML 50 ML IV SCH (21:36)
[2019-08-07] MEDS: NYSTATIN 500,000 UNITS/5 ML UDC PO SCH (21:37)
[2019-08-08 02:03] VITALS: BP 119/80
[2019-08-08] MEDS: METOPROLOL TARTRATE 50 MG TAB PO SCH ×2 (04:09→07:59)
[2019-08-08 04:36] LABS: BASOPHILS # (AUTO) 0.04 x10^3/uL (0-0.1); BASOPHILS % (AUTO) 1 % (0-1); EOSINOPHILS # (AUTO) 0.05 x10^3/uL (0-0.4); EOSINOPHILS % (AUTO) 1 % (1-7); LYMPHOCYTES # (AUTO) 0.96 x10^3/uL (1-3.4); LYMPHOCYTES % (AUTO) 11 % (22-44); MD NO; MEAN CORPUSCULAR HEMOGLOBIN 31.2 pg (27.0-34.8); MEAN CORPUSCULAR VOLUME 94.5 fL (80-100); MEAN PLATELET VOLUME 6.9 fL (7.4-10.4); MONOCYTES # (AUTO) 0.54 x10^3/uL (0.2-0.8); MONOCYTES % (AUTO) 6 % (2-9); NEUTROPHILS # (AUTO) 6.98 x10^3/uL (1.8-6.8); NEUTROPHILS % (AUTO) 81 % (42-75); PLATELET COUNT 243 x10^3/uL (130-400); RED BLOOD COUNT 4.41 x10^6/uL (3.82-5.3); RED CELL DISTRIBUTION WIDTH 18.4 % (9.6-15.2)
[2019-08-08 04:45] LABS: ALANINE AMINOTRANSFERASE 30 U/L (12-78); ALBUMIN 3.3 g/dL (3.4-5.0); ANION GAP 5 mmol/L (5-15); CALCIUM 8.4 mg/dL (8.5-10.1); CHLORIDE 104 mmol/L (98-107); CREATININE 0.79 mg/dL (0.55-1.02)
[2019-08-08 04:47] LABS: ALKALINE PHOSPHATASE 50 U/L (45-117); BILIRUBIN,TOTAL 0.5 mg/dL (0.2-1.0); TOTAL PROTEIN 6.6 g/dL (6.4-8.2)
[2019-08-08] MEDS: PANTOPRAZOLE 40MG TABLET PO SCH (05:20)
[2019-08-08] MEDS: NYSTATIN 500,000 UNITS/5 ML UDC PO SCH ×2 (05:20→11:17)
[2019-08-08] MEDS: morphine SULFATE 10 MG/ML, 1ML IVPush PRN ×3 (05:21→12:21)
[2019-08-08] MEDS: LORazepam 1MG TABLET PO PRN (06:12)
[2019-08-08] MEDS: ALBUTEROL SULFATE 2.5 MG/3 ML NPPB PRN (06:45)
[2019-08-08] MEDS: maalox/diphenh/lido/sucralfate 5 ML PO SCH (07:51)
[2019-08-08 07:56] VITALS: BP 133/90
[2019-08-08] MEDS: ASCORBIC ACID 500 MG TABLET PO SCH (07:57)
[2019-08-08] MEDS: AZITHROMYCIN 500 MG in SODIUM CHLORIDE 0.9% 250 ML IV SCH (07:57)
[2019-08-08] MEDS: LISINOPRIL 10 MG TABLET PO SCH (07:58)
[2019-08-08 08:00] VITALS: BP 133/90
[2019-08-08] MEDS: BENZONATATE 100 MG CAPSULE PO SCH (08:00)
[2019-08-08] MEDS: ZINC SULFATE 220 MG CAPSULE PO SCH (08:00)
[2019-08-08] MEDS: SENNA/DOCUSATE TABLET PO SCH (08:04)
[2019-08-08] MEDS ORDERED: FENTANYL 75 MCG PATCH TD SCH (10:00)
[2019-08-08] MEDS: LORazepam 2 MG/ML, 1ML IVPush PRN (11:17)
[2019-08-08] MEDS ORDERED: FENTANYL 50 MCG PATCH ONE (11:36)
[2019-08-08] MEDS ORDERED: FENTANYL 25 MCG PATCH ONE (11:36)
[2019-08-08] MEDS ORDERED: BENZ-17 PO (12:02)
[2019-08-08] MEDS ORDERED: CEFD300C37 PO (12:02)
[2019-08-08] MEDS ORDERED: NYST1000 PO (12:02)
[2019-08-08] MEDS ORDERED: FENT1PAT77 TD (12:02)
[2019-08-08] MEDS ORDERED: LISI-167 PO (12:02)
[2019-08-08] MEDS ORDERED: METO50TA82 PO (12:02)
[2019-08-08] MEDS ORDERED: PRED10TA PO (12:02)
[2019-08-08] MEDS ORDERED: PANT40TA5 PO (12:02)
== END 2019-08-08 14:15 | disposition hospice, home (50) | DRG 871 ==
LOC: ED 11:42 → EDIP 14:06 → SUATTDRO 14:15 → 4NW 16:39 → 3WST 08-05 18:04
PROVIDERS: ADMIT Internal Medicine; ATTEND Internal Medicine
PROC: 5A2204Z Restoration of Cardiac Rhythm, Single (ICD-10-PCS; principal; 2019-08-02)
PROC: 02HV33Z Insertion of Infusion Device into Superior Vena Cava, Percutaneous Approach (ICD-10-PCS; 2019-08-03)
PROC: B548ZZA Ultrasonography of Superior Vena Cava, Guidance (ICD-10-PCS; 2019-08-03)
DX: A41.9 Sepsis, unspecified organism (principal); J96.01 Acute respiratory failure with hypoxia; N17.0 Acute kidney failure with tubular necrosis; J15.6 Pneumonia due to other Gram-negative bacteria; C34.90 Malignant neoplasm of unspecified part of unspecified bronchus or lung; I47.1 Supraventricular tachycardia; J44.0 Chronic obstructive pulmonary disease with (acute) lower respiratory infection; J44.1 Chronic obstructive pulmonary disease with (acute) exacerbation; N39.0 Urinary tract infection, site not specified; K20.9 Esophagitis, unspecified; E66.9 Obesity, unspecified; E83.42 Hypomagnesemia; F17.210 Nicotine dependence, cigarettes, uncomplicated; G89.3 Neoplasm related pain (acute) (chronic); J98.4 Other disorders of lung; I10 Essential (primary) hypertension; Z20.828 Contact with and (suspected) exposure to other viral communicable diseases; Z51.5 Encounter for palliative care; Z82.49 Family history of ischemic heart disease and other diseases of the circulatory system; Z85.118 Personal history of other malignant neoplasm of bronchus and lung; Z86.73 Personal history of transient ischemic attack (TIA), and cerebral infarction without residual deficits; Z92.3 Personal history of irradiation; Z68.35 Body mass index [BMI] 35.0-35.9, adult; I95.9 Hypotension, unspecified
CPT/HCPCS: 36415; 36573; 71045; 71275; 80048; 80053; 81003; 82728; 83605; 83615; 83735; 83880; 84100; 84145; 84443; 84484; 85025; 85049; 85379; 85384; 85610; 85730; 86140; 87040; 87070; 87205; 87324; 93005; 94640; 96361; 96365; 96366; 96367; 96375; 99291; G0378; J0153; J0456; J0696; J1650; J2405; J7613; Q9967; C1751; C9113; J1450; J2060; J2270; J2920; J3475; J7030; J7040; J7050; J7512; U0001-CS

== ENCOUNTER 2019-09-13 13:03 | Emergency (ER) | payer MEDICARE ==
[~2019-09-13] VITALS: Ht 167.6 cm; Wt 81.8 kg
[~2019-09-13 13:03] MED LIST changes: +BENZ-17 PO; +CEFD300C37 PO; +FENT1PAT77 TD; +NYST1000 PO; +PANT40TA5 PO; +PRED10TA PO
--- NOTE | 2019-09-13 14:10 | NUR ---
I AM ASSUMING CARE OF THIS PT FROM YUNG (SHANTA) AT THIS TIME. SBAR REPORT WAS EXCHANGED AT THE BEDSIDE
--- NOTE | 2019-09-13 14:11 | NUR ---
PHLEBOTOMY IS AT THE BEDSIDE FOR BLOD SAMPLING
--- NOTE | 2019-09-13 14:30 | NUR ---
PSYCHIATRIC NURSE PRACTITIONER IS AT THE BEDSIDE FOR CONSULT.
[2019-09-13 14:36] LABS: MEAN CORPUSCULAR HEMOGLOBIN 31.3 pg (27.0-34.8); MEAN CORPUSCULAR HGB CONC 33.1 g/dL (32.4-35.8); MEAN CORPUSCULAR VOLUME 94.6 fL (80-100); MEAN PLATELET VOLUME 7.9 fL (7.4-10.4); PLATELET COUNT 194 x10^3/uL (130-400); RED BLOOD COUNT 4.48 x10^6/uL (3.82-5.3); RED CELL DISTRIBUTION WIDTH 15.8 % (9.6-15.2)
[2019-09-13 14:41] LABS: ALBUMIN 3.1 g/dL (3.4-5.0); ANION GAP 6 mmol/L (5-15); CALCIUM 8.2 mg/dL (8.5-10.1); CHLORIDE 109 mmol/L (98-107); CREATININE 0.58 mg/dL (0.55-1.02)
[2019-09-13 14:42] LABS: SALICYLATE LEVEL < 1.7 mg/dL (2.8-20.0)
[2019-09-13 14:52] LABS: BASOPHILS # (AUTO) 0.01 x10^3/uL (0-0.1); BASOPHILS % (AUTO) 0 % (0-1); EOSINOPHILS # (AUTO) 0.02 x10^3/uL (0-0.4); EOSINOPHILS % (AUTO) 0 % (1-7); LYMPHOCYTES # (AUTO) 0.52 x10^3/uL (1-3.4); LYMPHOCYTES % (AUTO) 10 % (22-44); MD SCAN; MONOCYTES # (AUTO) 0.21 x10^3/uL (0.2-0.8); MONOCYTES % (AUTO) 4 % (2-9); NEUTROPHILS # (AUTO) 4.76 x10^3/uL (1.8-6.8); NEUTROPHILS % (AUTO) 86 % (42-75)
--- NOTE | 2019-09-13 15:02 | NUR ---
PT TO XR W TECH
--- NOTE | 2019-09-13 15:39 | NUR ---
BREAK RN: PATIENT ATTEMPTED TO URINATE INTO CUP FOR UA, UNABLE TO URINATE AT THIS TIME. WILL ATTEMPT AT A LATER TIME. PATIENT BACK IN BED, SITTER AT DOOR, ROOM SECURED.
[2019-09-13] MEDS ORDERED: POTASSIUM CHLORIDE 10% 40 MEQ/30 ML UDC PO ONE (16:00)
--- NOTE | 2019-09-13 16:19 | NUR ---
PT RESTING AT THE SIDE OF THE BED. TALKING W SITTER IS APPROPRIATE. NO ACUTE CHANGES NOTED OVER THE LAST FEW HOURS. WE ARE AWAITING A MEALTRAY. I WILL CONTINUE TO MONITOR AND TREAT ORDERED, WELL PRN WHILE AWAITING A ROOM ASSIGNMENT FOR PSYCHIATRIC CARE.
[2019-09-13] MEDS ORDERED: PANTOPRAZOLE 20MG TABLET ONE (16:47)
[2019-09-13 16:53] LABS: BARBITURATE SCREEN, URINE Negative (Negative); BENZODIAZEPINE SCREEN, URINE Positive (Negative); CANNABINOID SCREEN, URINE Negative (Negative); COCAINE SCREEN, URINE Negative (Negative); METHADONE SCREEN, URINE Negative (Negative); OPIATE SCREEN, URINE Positive (Negative)
[2019-09-13 16:54] LABS: AMPHETAMINE SCREEN, URINE Negative (Negative)
[2019-09-13] MEDS: SUCRALFATE 1 GM/10 ML UDC PO SCH ×3 (16:56→23:07)
[2019-09-13] MEDS ORDERED: PANTOPRAZOLE 20MG TABLET PO ONE (17:00)
--- NOTE | 2019-09-13 17:32 | NUR ---
walked a lap around the e.r. w this pt. she is steady on her feet. still very delusional in regard to conspiracy theories. she is however cooperative and compliant with care. vs are stable and within defined limits. i will continue to monitor and treat as ordered, as well as prn while awaiting a room assignment for admission to psychiatric care.
[2019-09-13] MEDS: POTASSIUM CHLORIDE 10% 40 MEQ/30 ML UDC PO ONE ×3 (17:46→18:03)
--- NOTE | 2019-09-13 17:47 | NUR ---
lea is refusing her oral potassium tablets. "i ain't no f'n horse." after extensive debate i have agreed to leave her alone for a bit. i will retry to admin over the next hour.
[2019-09-13] MEDS ORDERED: LORazepam 1MG TABLET ONE (17:52)
[2019-09-13] MEDS ORDERED: LORazepam 1MG TABLET PO ONE (18:00)
--- NOTE | 2019-09-13 18:03 | NUR ---
lea has refused both liquid and tablet for k+. she was agreeable to lorazepam.
--- NOTE | 2019-09-13 18:58 | NUR ---
GLENROY (RN) IS ASSUMING CARE OF THIS PT AT THIS TIME. SBAR REPORT WAS EXCHANGED AT THE BEDSIDE.
--- NOTE | 2019-09-13 19:00 | NUR ---
assumed care of pt. pt here on legal hold for inability to care for self and delusions. pt is aware of day and date. mildly anxious but cooperative at this time. pt was found outside the building this AM. pt is currently refusing meal tray. offered other snacks and pt refuses at this time. pt currently resing in posiion of comfort on hospital bed. room secure. sitter present for safety
--- NOTE | 2019-09-13 20:05 | NUR ---
no changes. pt has ambulated to BR with supervision. warm blankets given per request. room secure. sitter present for safety
--- NOTE | 2019-09-13 20:29 | NUR ---
TP: FAXED TO [facility]. JANAK WOMACK TO LOOK OVER INFORMATION
--- NOTE | 2019-09-13 21:02 | NUR ---
TP: REFUSED BY [facility], [place] DUE TO PT BEING A FLIGHT RISK
--- NOTE | 2019-09-13 21:03 | NUR ---
TP: PACKET [facility]ED TO [facility]
--- NOTE | 2019-09-13 21:11 | NUR ---
behavioral health RN has been to bedside for eval. pt continues to be a flight risk and is making repeated statements that she wants to leave. room secure. sitter present for safety
--- NOTE | 2019-09-13 21:56 | NUR ---
no new c/o. pt dozing intermittently. resting on hospital bed in position of comfort. room secure. sitter present for safety
--- NOTE | 2019-09-13 21:59 | NUR ---
DORA FROM [facility] CALLED AND STATES THAT FOR THIS PATIENT TO BE CONSIDERED FOR ADMISSION SHE NEEDS A REDRAW OF HER POTASSIUM LEVELS. DR KEITA INFORMED OF THIS UPDATE.
--- NOTE | 2019-09-13 23:07 | NUR ---
pt resting in position of comfort. have made mulitple attemtps to offer ordered meds to pt, but she continues to refuse. pt reports "I don't want no more medicine!" will continue to monitor. room secure. sitter at bedside for safety
--- NOTE | 2019-09-13 23:25 | NUR ---
pt now agrees to eat. PO snacks and fluids given. sitter remains present at [facility] for safety. pt updated on POC and is happy to be transfered to another facility
--- NOTE | 2019-09-14 00:04 | NUR ---
pt resting in position of comfort. dozing intermittently on hospital bed with lights dimmed. no apparnt distress. room secure. sitter present for safety
--- NOTE | 2019-09-14 00:14 | NUR ---
report to Alesia WOMACK for lunch
--- NOTE | 2019-09-14 01:00 | NUR ---
pt sleeping. no apparent distress. room secure. sitter present for safety
--- NOTE | 2019-09-14 02:00 | NUR ---
no changes. pt continues sleeping in position of comfort room secure. sitter present fo safety
--- NOTE | 2019-09-14 03:21 | NUR ---
PO fluids given per request. pt states that she wants to go home. pt states that she wants to talk to hr psychiatrist today. pt updated on POC
--- NOTE | 2019-09-14 04:41 | NUR ---
pt is now c/o diarrhea and states that she wants something fo it. notified
[2019-09-14] MEDS ORDERED: LOPERAMIDE 2 MG CAPSULE ONE ×2 (04:54→05:15)
[2019-09-14] MEDS ORDERED: LOPERAMIDE 2 MG CAPSULE PO ONE (05:00)
[2019-09-14] MEDS ORDERED: POTASSIUM CHLORIDE 10% 40 MEQ/30 ML UDC PO ONE ×2 (05:00→13:30)
--- NOTE | 2019-09-14 05:30 | NUR ---
pt has been medicated per order. mask given per request. warm blankets given per request. pt updated on POC room secure. sitter at bedside for safety
--- NOTE | 2019-09-14 06:03 | NUR ---
no changes. pt resting in postition of comfort. no new c/o. room secure. sitter present for safety
--- NOTE | 2019-09-14 06:56 | NUR ---
report to Gabino WOMACK
--- NOTE | 2019-09-14 07:33 | NUR ---
REPORT FROM GLENROY
--- NOTE | 2019-09-14 08:30 | NUR ---
PT SLEEPING. SITTER PRESENT
--- NOTE | 2019-09-14 09:17 | NUR ---
PT REFUSED MEAL TRAY. ENCOURAGED TO DRINK ORANGE JUICE. LABS IN PROCESS. PT AWARE OF SITUATION, STILL PARANOID
[2019-09-14] MEDS ORDERED: MAGNESIUM OXIDE 400 MG TABLET ONE (10:26)
[2019-09-14] MEDS ORDERED: POTASSIUM CHLORIDE 20 MEQ TAB.ER.PRT ONE (10:26)
[2019-09-14] MEDS ORDERED: POTASSIUM CHLORIDE 20 MEQ TAB.ER.PRT PO ONE (10:30)
[2019-09-14] MEDS ORDERED: MAGNESIUM OXIDE 400 MG TABLET PO SCH (10:30)
--- NOTE | 2019-09-14 10:30 | NUR ---
PT TOOK MEDICATIONS WHEN SHE WAS ABLE TO SEE PACKETS. PT THINKS WE ARE PUTTING THINGS IN THE COFFEE. SITTER PRESENT.
[2019-09-14] MEDS ORDERED: LORazepam 1MG TABLET ONE ×2 (10:32→16:13)
[2019-09-14] MEDS ORDERED: POTASSIUM CHLORIDE 20 MEQ PACKET ONE (10:33)
[2019-09-14] MEDS ORDERED: MAALOX/HYOSCYAMINE/LIDOCAINE 45 ML BTL ONE (10:50)
[2019-09-14] MEDS ORDERED: MAALOX/HYOSCYAMINE/LIDOCAINE 45 ML BTL PO ONE (11:00)
[2019-09-14] MEDS ORDERED: LORazepam 1MG TABLET PO ONE ×2 (11:00→16:30)
[2019-09-14] MEDS: NYSTATIN 500,000 UNITS/5 ML UDC PO SCH ×3 (11:00→21:00)
--- NOTE | 2019-09-14 11:30 | NUR ---
PT REQUESTING TO SPEAK W HER THE ROSHANOLOGIST TOM. PT INFORMED THAT CAROLEE ISLAS WILL BE SEEING HER. GARTH RIZZO
--- NOTE | 2019-09-14 13:42 | NUR ---
AMBULATED W PT AROUND HALLS. PT APPROPIATE. STEADY GAIT. PT WANTS TO GO HOME
--- NOTE | 2019-09-14 14:22 | NUR ---
PT ENCOURAGED TO DRINK ORAL POTASSIUM, PT REFUSING.
--- NOTE | 2019-09-14 14:54 | NUR ---
UPDATED POTASSIUM SENT TO [facility]
[2019-09-14] MEDS: SUCRALFATE 1 GM/10 ML UDC PO SCH (16:00)
--- NOTE | 2019-09-14 16:08 | NUR ---
PT CRYING, REFUSING LABS.
--- NOTE | 2019-09-14 16:18 | NUR ---
MEDICATED FOR ANXIETY. LABS BEING DRAWN. SITTER PRESENT
--- NOTE | 2019-09-14 17:49 | NUR ---
ASSISTED PT W SHOWER. NEW GOWN AND SUPPLIES PROVIDED. SITTER PRESENT.
[2019-09-14] MEDS ORDERED: NYSTATIN TOPICAL POWDER 15GM TP PRN (18:00)
--- NOTE | 2019-09-14 18:15 | NUR ---
CALLED AND SPOKE WITH [facility] REGARDING K+. THEY HAVE MULTIPLE QUESTIONS REGARDING PTS CANCER, HOSPICE AND HER ABILITY TO SWALLOW. THERE WAS NO NURSE AT THE TIME TO SPEAK TO AND THEY SAID WHEN THERE NURSE WAS FREE THEY WOULD HAVE THEM CALL.
--- NOTE | 2019-09-14 19:00 | NUR ---
REPORT FROM STACEY WOMACK
--- NOTE | 2019-09-14 19:06 | NUR ---
PT PROVIDED WITH SPRITE AND WARM BLANKET PER REQUEST, PT NOW LAYING DOWN IN BED WITH EYES CLOSED, APPEARS COMFORTABLE, SITTER OBSERVING FROM HALLWAY, WILL CONTINUE TO MONITOR
--- NOTE | 2019-09-14 19:38 | NUR ---
PT REQUESTING ATIVAN OR 'SOMETHING TO SLEEP." INFORMED DR RODGERS, DISCUSSED PT HAD PO ATIVAN 3 HRS AGO AND WILL HOLD OFF ON ORDERING ANYTHING AT THIS TIME.
--- NOTE | 2019-09-14 20:19 | NUR ---
PT REQUESTING TO SPEAK TO KEITH AND NEEDS TO SPEAK WITH HER BEFORE SHE GOES TO BED. PT INFORMED THERE IS NO ONE ON THE UNIT NAMED KEITH Gallego THIS TIME. PT SAFETY ENSURED, NEW BLANKETS PROVIDED, CALL CURRAN WITHIN REACH, SITTER OBSERVING FROM HALLWAY, PT STILL WORKING ON MEAL TRAY
--- NOTE | 2019-09-14 21:29 | NUR ---
Pt medicated per MAY, provided with nystatin powder prn per request. lights dimmed to promote rest, call chadwick within reach, sitter monitoring from byrd
--- NOTE | 2019-09-14 22:16 | NUR ---
Pt provided with warm blankets per request, pt states she is "going to sleep now." Safety of room ensured, sitter observing from byrd, call chadwick within reach, will continue to monitor
--- NOTE | 2019-09-15 00:18 | NUR ---
pt resting in bed with eyes closed, NAD noted, sitter observing from hallway
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
--- NOTE | 2019-09-15 02:59 | NUR ---
pt resting in bed, pt asked for more blankets and pt informed she already has 11, NAD noted, safety of room ensured, sitter observing from byrd, will continue to monitor
--- NOTE | 2019-09-15 03:24 | NUR ---
Pt states she can't sleep without warm blankets, pt provided one warm blanket and informed that this would be it since she has 11, pt provided with cup of ice per request, pt assisted to comfortable position and tucked in, pt states she "will now go to sleep"
--- NOTE | 2019-09-15 04:23 | NUR ---
PT APPEARS TO BE SLEEPING COMFORTABLY IN BED, NAD NOTED, SITTER OBSERVING IN GRANAD[place]
[2019-09-15] MEDS: NYSTATIN 500,000 UNITS/5 ML UDC PO SCH ×3 (06:00→19:00)
--- NOTE | 2019-09-15 06:31 | NUR ---
PT AWAKE AND SITTING ON SIDE OF BED, PROVIDED CUP OF COFFEE PER REQUEST, MEDICATED PER MAY. PT COOPERATIVE AND CALM AT THIS TIME
--- NOTE | 2019-09-15 06:54 | NUR ---
report from zaina ignacio. as
--- NOTE | 2019-09-15 06:54 | NUR ---
REPORT TO JUAN JOSE
--- NOTE | 2019-09-15 08:01 | NUR ---
PT C/O CHEST PAIN. VAGUE RESPONSES TO QUESTIONS. EKG DONE, TO MD. PT ASKING FOR CXR "TO SEE IF MY CANCER METASTASIZED". VSS, DENIES SOB, DENIES PAIN ON MOVEMENT. PT VOMITED X1. GIVEN FRESH SHEETS. WILL NOTIFY MD.
--- NOTE | 2019-09-15 08:08 | NUR ---
NOTIFIED MD ABOUT NAUSEA, CHEST PAIN, AND REQ FOR PRN ANXIETY MED.
[2019-09-15] MEDS ORDERED: LORazepam 1MG TABLET ONE (08:17)
[2019-09-15] MEDS ORDERED: ONDANSETRON ODT 4 MG ONE (08:17)
[2019-09-15] MEDS ORDERED: ONDANSETRON ODT 4 MG PO ONE (08:30)
[2019-09-15] MEDS ORDERED: LORazepam 1MG TABLET PO ONE (08:30)
--- NOTE | 2019-09-15 09:03 | NUR ---
pt was medicated per may, sitter in place, pt calm and in bed at this moment.as
--- NOTE | 2019-09-15 10:00 | NUR ---
given food, cement mason helper was at bedside. as
--- NOTE | 2019-09-15 10:39 | NUR ---
angel naranjo from pharm. navid, sitter in place. as
[2019-09-15] MEDS ORDERED: ACETAMINOPHEN 500 MG TABLET ONE (11:13)
--- NOTE | 2019-09-15 11:19 | NUR ---
tylenol per mar for "my chest hurts, my stomach hurts, my head hurts". pt asking for "liquid morphine". as
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
--- NOTE | 2019-09-15 11:29 | NUR ---
meds re requested from pharm. as
[2019-09-15] MEDS ORDERED: ACETAMINOPHEN 500 MG TABLET PO ONE (11:30)
[2019-09-15] MEDS: SUCRALFATE 1 GM/10 ML UDC PO SCH ×2 (12:25→18:31)
--- NOTE | 2019-09-15 12:26 | NUR ---
MEDS PER MAY, LATE PHARMACY DID NOT SEND UNTIL 2 PHONE CALLS.
--- NOTE | 2019-09-15 13:10 | NUR ---
REPORT TO LYNNETTE WOMACK.
--- NOTE | 2019-09-15 13:12 | NUR ---
PT SITTING UP IN BED, GIVEN PO FLUIDS. AWAITING LUNCH TO ARRIVE. SITTER OUTSIDE OF ROOM FOR DIRECT OBSERVATION AND Q15 MIN SAFETY CHECKS.
--- NOTE | 2019-09-15 14:00 | NUR ---
REPORT RC'VD FROM JOÃO WOMACK AND CARE OF PT ASSUMED. PT SITTING UP IN [place], NO S/S OF DISTRESS. SITTER OUTSIDE ROOM AT ALL TIMES.
--- NOTE | 2019-09-15 14:46 | NUR ---
LUNCH TRAY PROVIDED TO PT. PT REQUESTING A CHECK ON WHETHER HER LEGAL HOLD IS "UP" OR NOT. STATES, "I'M NOT SUICIDAL OR ANYTHING. I COULD HAVE FAMILY COME PICK ME UP." WILL KEEP PT UPDATED ON POC.
[2019-09-15 15:40] VITALS: BP 127/90
--- NOTE | 2019-09-15 15:45 | NUR ---
PT SITTING AT SIDE OF CALE, STATES, "I CAN'T BREATHE. I NEED A BREATHING TX. THEY SAID THEY WERE GONNA GIVE ME ONE EARLIER BUT THEY DIDN'T". HR 129-130. PT REPORTS HX OF COPD & LUNG CA. ERP NOTIFIED, NEW ORDERS RC'VD. Addendum: 09/15/19 at 1556 by HBENSON PT ALSO C/O MID-CHEST PAIN 10/19. ERP NOTIFIED.
--- NOTE | 2019-09-15 16:28 | NUR ---
PT STILL REQUESTING BREATHING TX. NO WHEEZING NOTED. RT NOT DOING AEROSOLIZED BREATHING TX'S AT THIS TIME. ERP NOTIFIED. MDI ORDERED.
[2019-09-15] MEDS ORDERED: ALBUTEROL HFA 90 MCG/SPRAY INH PRN (16:30)
--- NOTE | 2019-09-15 18:00 | NUR ---
VENTOLIN INHALER RECEIVED FROM PHARMACY AND PT MEDICATED PER ORDERS. STATES SHE FEELS BETTER.
== END 2019-09-15 19:41 ==
LOC: ED 15:45
DX: K20.9 Esophagitis, unspecified (principal); F22 Delusional disorders; R00.0 Tachycardia, unspecified; R07.89 Other chest pain; J44.9 Chronic obstructive pulmonary disease, unspecified; I11.9 Hypertensive heart disease without heart failure; Z85.118 Personal history of other malignant neoplasm of bronchus and lung
CPT/HCPCS: 36415; 71045; 74220; 80048; 80307; 82040; 84132; 85025; 93005; 99285; Q0162